=== PATIENT | male | born 1980 | race Caucasian/White ===

== ENCOUNTER 2024-03-23 10:25 | Outpatient (CLI) | payer OTHER, SELFPAY ==
--- NOTE | 2024-03-23 10:42 | XR_ITS ---
WS: [id number] Lateral views of cervical spine in the flexion, extension and neutral positions. 03/23/2024 Clinical Data: CERVICALGIA Comparison: None. Findings: There is degenerative disc narrowing at C5-C6 with anterior spurring. No prevertebral soft tissue swe lling is seen. There are no compression fractures. The lateral view of the odontoid and C1 is normal. On flexion and extension there is no subluxation or limitation of motion. XR/XR cervical spine fl/ex [id number] Impression: 1. Degenerative disc narrowing at C5-C6 with osteophytes. 2. Negative for limitation of motion or subluxation on flexion or extension.
== END 2024-03-23 10:26 | disposition home or self-care (01) ==
LOC: RAD 10:28
PROVIDERS: Family Provider Nurse Practitioner; PCP Family Medicine Adult Medicine; Visit Provider Nurse Practitioner
DX: M50.322 Other cervical disc degeneration at C5-C6 level (principal); M25.78 Osteophyte, vertebrae
CPT/HCPCS: 72040